=== PATIENT | female | born 1995 | race African-American/Black ===

== ENCOUNTER 2021-12-11 14:40 | Outpatient (CLI) | payer OTHER | END 2021-12-11 15:46 | disposition home or self-care (01) | LOC: PRENATAL 14:40 | PROVIDERS: ATTEND Obstetrics & Gynecology Maternal & Fetal Medicine | DX: O35.0XX1 Maternal care for (suspected) central nervous system malformation in fetus, fetus 1 (principal); O35.3XX1 Maternal care for (suspected) damage to fetus from viral disease in mother, fetus 1; O98.512 Other viral diseases complicating pregnancy, second trimester; Z36.89 Encounter for other specified antenatal screening; Z3A.24 24 weeks gestation of pregnancy ==

== ENCOUNTER 2022-03-17 23:19 | Inpatient (IN) | payer OTHER ==
[~2022-03-17] VITALS: Ht 157.5 cm; Wt 3.6 kg
[2022-03-19] MEDS ORDERED: PRENATAL + DHA1 EAC1 (09:11)
[2022-03-19] MEDS ORDERED: FERROUS FUMARAT89 MG (09:12)
[2022-03-19] MEDS ORDERED: HEMATINIC-FOLI1 EACH (09:12)
== END 2022-03-28 17:36 | disposition home or self-care (01) | DRG 785 ==
LOC: OBS/DEL 23:19 → OB/GYN 03-18 20:47 → LDR 03-18 20:47 → OB/GYN 03-20 00:25
PROVIDERS: ADMIT Obstetrics & Gynecology; ATTEND Obstetrics & Gynecology
PROC: 4A1HXCZ Monitoring of Products of Conception, Cardiac Rate, External Approach (ICD-10-PCS; 2022-03-18)
PROC: 30233N1 Transfusion of Nonautologous Red Blood Cells into Peripheral Vein, Percutaneous Approach (ICD-10-PCS; 2022-03-23)
PROC: 0UB70ZZ Excision of Bilateral Fallopian Tubes, Open Approach (ICD-10-PCS; 2022-03-25)
PROC: 0DNW0ZZ Release Peritoneum, Open Approach (ICD-10-PCS; 2022-03-25)
PROC: 10D00Z1 Extraction of Products of Conception, Low, Open Approach (ICD-10-PCS; principal; 2022-03-25 15:00)
DX: O99.013 Anemia complicating pregnancy, third trimester (principal); D50.0 Iron deficiency anemia secondary to blood loss (chronic); O34.211 Maternal care for low transverse scar from previous cesarean delivery; O99.891 Other specified diseases and conditions complicating pregnancy; N73.6 Female pelvic peritoneal adhesions (postinfective); Z3A.38 38 weeks gestation of pregnancy; Z37.0 Single live birth; Z20.822 Contact with and (suspected) exposure to COVID-19; Z30.2 Encounter for sterilization